=== PATIENT | male | born 1945 | race Caucasian/White ===

== ENCOUNTER 2021-02-20 08:09 | Emergency (ER) | payer OTHER ==
[~2021-02-20] VITALS: Ht 162.6 cm; Wt 72.0 kg
[2021-02-20 08:28] VITALS: BP 135/59
[2021-02-20] MEDS ORDERED: BACL-141 PO (09:19)
== END 2021-02-20 09:39 | disposition home or self-care (01) ==
LOC: ER 08:26
DX: H92.01 Otalgia, right ear (principal); M26.623 Arthralgia of bilateral temporomandibular joint; I10 Essential (primary) hypertension; N40.0 Benign prostatic hyperplasia without lower urinary tract symptoms; E78.00 Pure hypercholesterolemia, unspecified
CPT/HCPCS: 99281